=== PATIENT | male | born 1995 ===

== ENCOUNTER 2017-03-20 03:03 | Emergency (ER) | payer MEDICAID ==
--- NOTE | 2017-03-20 03:07 | C.PDOC ---
History Of Present Illness 21 year old male brought in by EMS after patient was found intoxicated and wobbly at [employer] by police who sent him to the ER for evaluation. Denies physical complaints at this time. Time Seen by Provider: 03/20/17 03:05 History Per: Patient History/Exam Limitations: no limitations Onset/Duration Of Symptoms: Hrs Current Symptoms Are (Timing): Still Present Suicide/Self Injury Attempted (Context): None Modifying Factor(s): Alcohol Associated Symptoms: denies: Depression, Suicidal Thoughts, Suicidal Plan Involuntary Hold By: None Recent travel outside of the [place]: No Past Medical History Reviewed: Historical Data, Nursing Documentation, Vital Signs Vital Signs: Last Vital Signs Temp 98.5 F 03/20/17 03:08 Pulse 73 03/20/17 03:08 Resp 20 03/20/17 03:08 BP 104/70 03/20/17 03:08 Pulse Ox 98 03/20/17 03:08 - Medical History PMH: No Chronic Diseases Surgical History: No Surg Hx Family History: States: Unknown Family Hx - Social History Hx Alcohol Use: No Hx Substance Use: No Review Of Systems Constitutional: Negative for: Fever, Chills Gastrointestinal: Negative for: Nausea, Vomiting, Diarrhea Physical Exam - Physical Exam Appears: Non-toxic, No Acute Distress, Other (ETOH on breath, pleasant, coherent , cooperative) Skin: Normal Color, Warm, Dry Head: Atraumatic, Normacephalic Eye(s): bilateral: Normal Inspection Oral Mucosa: Moist Neck: Normal, Supple Chest: Symmetrical, No Tenderness Cardiovascular: Rhythm Regular Respiratory: Normal Breath Sounds, No Rales, No Rhonchi, No Wheezing Gastrointestinal/Abdominal: Soft, No Tenderness Extremity: Normal ROM (x4) Neurological/Psych: Oriented x3, Normal Speech, Normal Cognition Gait: Steady ED Course And Treatment Progress Note: Patient's friend is at bedside and will take patient home. Medical Decision Making Medical Decision Making: admits to alcohol use tonight, coherent safe escort @ bedside to take him home 1 block away. Disposition Doctor Will See Patient In The: Office Counseled Patient/Family Regarding: Studies Performed, Diagnosis - Disposition Referrals: [facility] [Outside] [facility] [Outside] Disposition: HOME/ ROUTINE Disposition Time: 03:07 Condition: GOOD Additional Instructions: avoid alcohol abuse Instructions: Abuse of Alcohol (ED) Forms: [facility] (Liberian) - Clinical Impression Clinical Impression: Alcohol abuse - Scribe Statement The provider has reviewed the documentation as recorded by the Scribvir[place]ia Mccarthy All medical record entries made by the Scribe were at my direction and personally dictated by me. I have reviewed the chart and agree that the record accurately reflects my personal performance of the history, physical exam, medical decision making, and the department course for this patient. I have also personally directed, reviewed, and agree with the discharge instructions and disposition.
[2017-03-20 03:11] VITALS: BP 104/70; PULSE 73; RESP 20; TEMP 98.5; O2SAT 98
== END 2017-03-20 03:25 | disposition home or self-care (01) ==
LOC: C.ER 03:03
DX: F10.10 Alcohol abuse, uncomplicated (principal)